=== PATIENT | male | born 1985 | race Two or more races ===

== ENCOUNTER → 2016-11-01 | Outpatient (CLI) | payer OTHER ==
--- NOTE | 2016-11-01 14:25 | Diagnostic Imaging Report ---
Indication: Abdominal pain. Liver cirrhosis Technique: Hernandez-scale and duplex images of the upper abdomen were obtained Comparison: None Findings: . Gallbladder is unremarkable, without stones, wall thickening, nor pericholecystic fluid. Sonographic Lanier's sign is negative. Common bile duct measures 6 mm in diameter. No intrahepatic biliary ductal dilatation. Liver demonstrates diffusely increased echogenicity, consistent with diffuse hepatocellular disease, most likely fatty change. It is markedly enlarged. There is an area of focal sparing in the usual location near the gallbladder fossa. Portal vein and hepatic veins are patent.. Pancreas is unremarkable. Spleen is unremarkable. Left kidney measures 14 cm in length. Right kidney measures 14 cm length. Both kidneys demonstrate normal echogenicity. There is no hydronephrosis. No focal abnormality. . Non-aneurysmal abdominal aorta. Impression: Liver demonstrates diffusely increased echogenicity, consistent with diffuse hepatocellular disease, most likely fatty change. Negative for gallstones or dilated ducts
== END | disposition home or self-care (01) ==
LOC: ULS 11:36
DX: R10.9 Unspecified abdominal pain (principal)
CPT/HCPCS: 76700